=== PATIENT | female | born 1970 | race Caucasian/White ===

== ENCOUNTER → 2016-08-18 | Outpatient (CLI) | payer BC ==
--- NOTE | 2016-08-23 11:09 | MM ---
Reason for exam: screening (asymptomatic). Last mammogram was performed 1 year and 8 months ago. History: Patient has history of other cancer at age 44. Family history of breast cancer in aunt at age 54. Took hormonal contraceptives for 3 years beginning at age 35. Physical Findings: A clinical breast exam by your physician is recommended on an annual basis and results should be correlated with mammographic findings. MG Screening Mammo w CAD Bilateral CC and MLO view(s) were taken. Prior study comparison: December 12, 2014, bilateral MG screening mammo w CAD. June 28, 2013, bilateral digital screening mammo w/CAD. The breast tissue is heterogeneously dense. This may lower the sensitivity of mammography. There is chronic nodularity bilaterally. There is no discrete abnormality. No significant changes when compared with prior studies. ASSESSMENT: Benign, BI-RAD 2 RECOMMENDATION: Routine screening mammogram of both breasts in 1 year.
== END | disposition home or self-care (01) ==
LOC: RADMAMWWP 07:14
PROVIDERS: ATTEND Family Medicine
DX: Z12.31 Encounter for screening mammogram for malignant neoplasm of breast (principal)

== ENCOUNTER → 2016-11-12 | Outpatient (CLI) | payer BC ==
--- NOTE | 2016-11-12 16:11 | US ---
EXAMINATION TYPE: US pelvic complete DATE OF EXAM: 11/12/2016 COMPARISON: NONE CLINICAL HISTORY: Pelvic Pain R10.2. Severe pelvic pain x 7-8 months worse during menses. Ablation 20 TECHNIQUE: Transabdominal (TA) Date of LMP: 10/27/16 EXAM MEASUREMENTS: Uterus: 10.9 x 4.8 x 6.6 cm Endometrial Stripe: 1.0 cm Right Ovary: 3.3 x 1.9 x 1.9 cm Left Ovary: 3.2 x 1.7 x 2.2 cm 1. Uterus: Anteverted Heterogeneous in appearance. Nabothian cysts noted. Cystic area body subendo thelial level = 0.9 x 0.7 x 0.9cm. Complex area anterior body within the myometrium = 1.2 x 1.2 x 1.4 cm probable fibroid 2. Endometrium: appears wnl 3. Right Ovary: wnl 4. Left Ovary: cystic area = 2.1 x 1.5 x 1.3cm 5. Bilateral Adnexa: wnl 6. Posterior cul-de-sac: small amount of free fluid anterior cul-de-sac Grayscale, color Doppler imaging performed. IMPRESSION: Fibroid uterus. Small left ovarian cyst. Free fluid within the pelvis.
== END | disposition home or self-care (01) ==
LOC: RADUSWWP 13:55
PROVIDERS: ATTEND Family Medicine
DX: D25.9 Leiomyoma of uterus, unspecified (principal); N83.202 Unspecified ovarian cyst, left side
CPT/HCPCS: 76856

== ENCOUNTER → 2018-05-18 | Outpatient (CLI) | payer BC ==
--- NOTE | 2018-05-18 12:53 | CONS ---
CONSULTATION A 47-year-old lady has been evaluated in the [facility] for possible obstructive sleep apnea-hypopnea syndrome and significant excessive daytime sleepiness. HISTORY OF PRESENT ILLNESS/SLEEP-WAKE EVALUATION: Patient's usual sleep schedule on working days from 10:30 p.m. until 5:45 - 6:00 am and on weekends from 10:30 - 11 p.m. until 8 a.m. No problems with falling asleep, although she has TV set in bedroom. She usually sleeps on the side position. She snores, has witnessed episodes of stopped breathing during the sleep by her . She has episodes of awakenings from sleep with gasping for air and dry mouth. In the morning, patient wakes up tired, falling asleep during the day, has problems with concentration. [place] Sleepiness Scale significantly increased to 18. Patient feels significantly sleepy during the day including time while driving the car. No history of hypnagogic hallucinations, sleep paralysis or cataplexy. PAST MEDICAL HISTORY: Positive for nasal septum deviation, melanoma, left knee problems. PAST SURGICAL HISTORY: Nasal surgery for nasal septum deviation, tonsillectomy, adenoidectomy, partial hysterectomy, cholecystectomy, left knee surgery for ACL problems. Two surgeries for melanomas of left hip in two different areas. MEDICATIONS: Loestrin. SOCIAL HISTORY: Negative for smoking. Alcohol consumption occasional. FAMILY HISTORY: Hypertension, heart problems, hyperlipidemia, arthritis, sleep apnea, snoring, cancer, diabetes. REVIEW OF SYSTEMS: Significant excessive daytime sleepiness. No vivid dreams during naps. PHYSICAL EXAM: lady without distress. BP 134/89, HR 92, RR 16, height 5, 3, weight 159.8, body mass index 28.1, oxygen saturation at room air 99%, temperature 98.4. OROPHARYNX: Moderately low position of soft palate. Slight restriction of nasal breathing. Neck Supple, no JVD. Thyroid is not palpable. LUNGS Clear to percussion and to auscultation. Good air exchange. No wheezing or rhonchi. HEART S1, S2 regular. No murmurs, gallops, or rubs. ABDOMEN Soft and nontender. Bowel sounds are present. No organomegaly appreciated. EXTREMITIES No clubbing or cyanosis. 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 Cranial nerves 2 to 7 intact. There is no fasciculation or atrophy. noted. No focal deficits observed. IMPRESSION: 1. Snoring, witnessed episodes of stopped breathing during the sleep, moderately low position of soft palate. Slight restriction of nasal breathing. Possible obstructive sleep apnea-hypopnea syndrome. 2. Significant excessive daytime sleepiness. [place] Sleepiness Scale increased to 18. Patient feels sleepy in different situations including while driving the car. Differential diagnosis should include narcolepsy. 3. Status post nasal surgery for nasal septum deviation x2. 4. Status post tonsillectomy and adenoidectomy. 5. Status post partial hysterectomy. 6. Status post cholecystectomy. 7. Status post left knee surgery for ACL problems. 8. Status post surgical treatment of melanoma of left hip in 2 different locations about 2 years ago. PLAN: 1. Polysomnography for evaluation of patient's breathing during sleep. 2. CPAP/BiPAP titration if sleep study confirms obstructive sleep apnea-hypopnea syndrome. 3. Preferable position during sleep on the side. 4. No driving if patient feels any sleepiness. 5. Multiple sleep latency test for objective evaluation of patient's symptoms of excessive daytime sleepiness, if sleep study will be negative for obstructive sleep apnea-hypopnea syndrome. 6. I will see patient for follow up visit to explain results of testing and following plan. Thank you very much for this allowing us to participate in this consultation. Sincerely, Gigi Aldridge MD, PhD, FAASM Diplomat of [employer] [place] [employer] [facility] [place] MMODL / ELPIDIO: [id number] /
== END | disposition home or self-care (01) ==
LOC: SLEEP 11:48
PROVIDERS: ATTEND Internal Medicine
DX: R06.83 Snoring (principal); G47.10 Hypersomnia, unspecified; Z90.711 Acquired absence of uterus with remaining cervical stump; Z90.49 Acquired absence of other specified parts of digestive tract; Z98.890 Other specified postprocedural states
CPT/HCPCS: 99211

== ENCOUNTER → 2019-04-11 | Outpatient (CLI) | payer BC ==
--- NOTE | 2019-04-11 12:06 | MM ---
Reason for exam: screening (asymptomatic). Last mammogram was performed 2 years and 8 months ago. History: Patient has history of other cancer at age 44. Family history of breast cancer in aunt at age 54. Took hormonal contraceptives for 3 years beginning at age 35. Physical Findings: A clinical breast exam by your physician is recommended on an annual basis and results should be correlated with mammographic findings. MG 3D Screening Mammo W/Cad Bilateral CC and MLO view(s) were taken. Prior study comparison: August 18, 2016, bilateral MG screening mammo w CAD. December 12, 2014, bilateral MG screening mammo w CAD. The breast tissue is heterogeneously dense. This may lower the sensitivity of mammography. There is no discrete abnormality. ASSESSMENT: Negative, BI-RAD 1 RECOMMENDATION: Routine screening mammogram of both breasts in 1 year.
== END | disposition home or self-care (01) ==
LOC: RADMAMWWP 07:01
PROVIDERS: ATTEND Obstetrics & Gynecology
DX: Z12.31 Encounter for screening mammogram for malignant neoplasm of breast (principal)
CPT/HCPCS: 77063; 77067

== ENCOUNTER → 2021-10-07 | Outpatient (CLI) | payer BC ==
[2021-10-07 08:55] VITALS: BP 147/93; PULSE 84; RESP 17; TEMP 98.2
--- NOTE | 2021-10-07 13:33 | P.HPOB ---
History of Present Illness H&P Date: 10/07/21 Chief Complaint: The patient is here for her routine gynecologic exam. This is a 50-year-old with an LMP of 2019. The patient is here to establish with this office. She is status post vaginal hysterectomy with sling procedure in 2019(benign). She is status post laparoscopic BSO in June 2021 for benign reasons. She is on ERT in the form of an estradiol patch. She has been on this since her BSO, but has recently noticed some nausea during the past 1-2 months. She denies hot flashes. She is otherwise without complaints. Review of Systems The patient has gained 20 pounds over the last year. She denies respiratory or cardiac problems GI: Recent nausea during the past 1-2 months. She has not had vomiting. Past Medical History Past Medical History: Cancer, Hypertension Additional Past Medical History / Comment(s): MELINOMA STAGE 1 x2 ON LEFT THIGH. 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 History of Any Multi-Drug Resistant Organisms: None Reported Past Surgical History: Ablation, Cholecystectomy, Hysterectomy, Tonsillectomy, Uterine Ablation Additional Past Surgical History / Comment(s): NOSE SURGERY, ACL REPLACEMENT, vaginal hysterectomy with urinary sling procedure in 2019. Laparoscopic BSO 2021. Past Anesthesia/Blood Transfusion Reactions: No Reported Reaction Past Psychological History: Anxiety, Depression (She denies any current depression symptoms.) Smoking Status: Never smoker Past Alcohol Use History: Occasional (10 per month) Past Drug Use History: None Reported Additional History: She has been since 2016 and this is her second marriage. 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 - Past Family History Mother Family Medical History: Diabetes Mellitus, Hypertension Father Family Medical History: Cancer, Hypertension Additional Family Medical History / Comment(s): Prostate cancer. Paternal aunt had breast cancer. Paternal uncle had lung cancer and another paternal uncle had prostate cancer. Medications and Allergies Home Medications Medication Instructions Recorded Confirmed Type Labetalol [Trandate] 100 mg PO DAILY 10/07/21 10/07/21 History estradioL [estradioL (Once Weekly) 1 patch TOPICAL WEEKLY 10/07/21 10/07/21 History 0.0375 mg Patch] Allergies Allergy/AdvReac Type Severity Reaction Status Date / Time adhesive tape Allergy Rash/Hives Unverified 10/07/21 08:46 iodamide Allergy Rash/Hives Unverified 10/07/21 08:45 Sulfa (Sulfonamide Allergy Rash/Hives Verified 10/07/21 08:45 Antibiotics) Exam Vital Signs Temp Pulse Resp BP Pulse Ox 10/07/21 08:48 98.2 F 84 17 147/93 98 Intake and Output 10/06/21 10/07/21 10/07/21 22:59 06:59 14:59 Other: Weight 78.471 kg Height 5 feet 3 inches, weight 173 pounds, BMI 30.6. This is a well-developed well-nourished white female who is alert and oriented times 3 in no acute distress. HEENT: Within normal limits. NECK: Supple without mass or thyromegaly. CHEST AND LUNGS: Clear to auscultation. HEART: Regular rate and rhythm. BREASTS: Are without mass or discharge. AXILLARY EXAM: Negative for adenopathy. BACK: Negative for CVA tenderness. ABDOMEN: Soft, nontender, without palpable masses. PELVIC EXAM: External genitalia appears normal. Vagina appears normal. There is no evidence of prolapse. Bimanual examination is negative for mass or tenderness. RECTAL EXAM: Rectovaginal exam is negative for mass or tenderness and is negative for occult blood. EXTREMITIES: Nontender. IMPRESSION: 1. 50 year old menopausal female who is status post vaginal hysterectomy and BSO for benign reasons, with normal gynecologic exam. 2. On transdermal ERT. Mild recent nausea may or may not be related to ERT. PLAN: 1. Pap smears have been discontinued. 2. Self breast awareness was discussed with the patient. We have also discussed symptoms associated with inflammatory breast cancer. 3. Screening mammogram was recently done on 07/07/2021 and was benign. She will repeat this after 1 year. 4. Osteoporosis prevention was discussed. I have stressed the importance of adequate calcium, vitamin D and regular exercise. Recommended amounts of calcium and vitamin D were also discussed. 5. I have recommended that she have a trial off of ERT to see if this helps with the nausea she has been experiencing recently. If it does help with the nausea and she is having menopausal symptoms, we can consider a lower ERT dose. If there is no change in her nausea, she will continue on estradiol patches 0.0375 changed twice weekly. The electronic prescription will be sent to [facility] pharmacy in [facility]. 6. Because of her age, I have recommended screening colonoscopy. She states she will look into this with her PCP. 7. She has completed her Covid vaccination series and did receive a booster. 8. She was advised to return in one year for her annual well woman exam.
== END ==
LOC: WWCWWP 08:35
PROVIDERS: ATTEND Obstetrics & Gynecology
DX: Z01.419 Encounter for gynecological examination (general) (routine) without abnormal findings (principal); R11.0 Nausea; I10 Essential (primary) hypertension; F41.9 Anxiety disorder, unspecified; F32.A Depression, unspecified; Z78.0 Asymptomatic menopausal state; Z90.710 Acquired absence of both cervix and uterus; Z79.890 Hormone replacement therapy; Z91.048 Other nonmedicinal substance allergy status; Z88.2 Allergy status to sulfonamides

== ENCOUNTER 2021-10-29 07:18 | Emergency (ER) | payer BC ==
[2021-10-29 07:24] VITALS: RESP 18
[2021-10-29] MEDS ORDERED: MAG HYDROX/AL HYDROX/SIMETH 30 ML, HYOSCYAMINE ELIXIR 10 ML, LIDOCAINE VISCOUS 2% 10 ML PO STA ×3 (07:44)
--- NOTE | 2021-10-29 07:55 | ED ---
General Adult HPI - General Chief complaint: ENT Stated complaint: abd pain Time Seen by Provider: 10/29/21 07:22 Source: patient, RN notes reviewed, old records reviewed Mode of arrival: ambulatory Limitations: no limitations - History of Present Illness Initial comments: 50-year-old female presenting with painful and difficulty swallowing. Symptoms have been going on for at least several weeks. She was seen by her primary care office and prescribed 40 mg of omeprazole. She has an appointment with gastroenterology scheduled. She has persistent pain which is worse with eating or drinking. She is able to swallow with some reflux symptoms as well. She reports a substernal pain. No recent weight loss. - Related Data Home Medications Medication Instructions Recorded Confirmed Labetalol [Trandate] 100 mg PO BID 10/07/21 10/29/21 Omeprazole [PriLOSEC] 40 mg PO DAILY 10/29/21 10/29/21 Ondansetron Odt [Zofran Odt] 8 mg PO Q8HR PRN 10/29/21 10/29/21 estradioL [estradioL (Twice 1 patch TRANSDERM SUWE 10/29/21 10/29/21 Weekly) 0.0375 mg Patch] Allergies Allergy/AdvReac Type Severity Reaction Status Date / Time adhesive tape Allergy Rash/Hives Unverified 10/07/21 08:46 iodamide Allergy Rash/Hives Unverified 10/07/21 08:45 Sulfa (Sulfonamide Allergy Rash/Hives Verified 10/07/21 08:45 Antibiotics) Review of Systems ROS Statement: Those systems with pertinent positive or pertinent negative responses have been documented in the HPI. ROS Other: All systems not noted in ROS Statement are negative. Past Medical History Past Medical History: Cancer, Hypertension Additional Past Medical History / Comment(s): MELINOMA STAGE 1 x2 ON LEFT THIGH. 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 History of Any Multi-Drug Resistant Organisms: None Reported Past Surgical History: Ablation, Cholecystectomy, Hysterectomy, Tonsillectomy, Uterine Ablation Additional Past Surgical History / Comment(s): NOSE SURGERY, ACL REPLACEMENT, vaginal hysterectomy with urinary sling procedure in 2019. Laparoscopic BSO 2021. ovary's removed. Past Anesthesia/Blood Transfusion Reactions: No Reported Reaction Past Psychological History: Anxiety, Depression Smoking Status: Never smoker Past Alcohol Use History: Occasional Past Drug Use History: None Reported - Past Family History Mother Family Medical History: Diabetes Mellitus, Hypertension Father Family Medical History: Cancer, Hypertension Additional Family Medical History / Comment(s): Prostate cancer. Paternal aunt had breast cancer. Paternal uncle had lung cancer and another paternal uncle had prostate cancer. General Exam Limitations: no limitations General appearance: alert, in no apparent distress Head exam: Present: atraumatic, normocephalic Eye exam: Present: normal appearance, PERRL ENT exam: Present: normal exam, normal oropharynx Neck exam: Present: normal inspection. Absent: tenderness, meningismus, lymphadenopathy, thyromegaly Respiratory exam: Present: normal lung sounds bilaterally, respiratory distress. Absent: wheezes, rales Cardiovascular Exam: Present: regular rate, normal rhythm GI/Abdominal exam: Present: soft. Absent: distended, tenderness, guarding, rebound Extremities exam: Present: normal inspection, normal capillary refill Neurological exam: Present: alert, oriented X3, CN II-XII intact. Absent: motor sensory deficit Psychiatric exam: Present: normal affect, normal mood Skin exam: Present: warm, dry, intact. Absent: cyanosis, diaphoretic Course Vital Signs 10/29/21 07:19 Temperature 98.1 F Pulse Rate 92 Respiratory 18 Rate Blood Pressure 165/98 O2 Sat by Pulse 96 Oximetry EKG Findings - EKG Comments: EKG Findings:: EKG: Sinus rhythm rate of 68 NV interval 155, QRS duration 86, QTC [address] segment elevation. Medical Decision Making - Medical Decision Making 50-year-old female with painful swallowing for several weeks. Patient is able to swallow. No signs of obstruction, no vomiting, no dyspnea. She is been on omeprazole for one week. She has an appointment with GI. I did obtain some laboratory testing including a cardiac workup as this patient did have some substernal discomfort associated with her symptoms. I do not see any acute abnormalities on EKG, chest x-ray, laboratory testing. Negative troponin. Her symptoms are suggestive of gastric reflux or esophagitis. She will require GI evaluation and currently has an appointment. In the meantime she will continue proton pump inhibitor, she'll avoid alcohol and NSAIDs. Return parameters discussed. - Lab Data Result diagrams: 10/29/21 08:06 10/29/21 08:06 Lab Results 06/09/22 06/09/22 06/09/22 Range/Units 08:06 08:06 08:06 WBC 5.5 (3.8-10.6) k/uL RBC 4.39 (3.80-5.40) m/uL Hgb 13.0 (11.4-16.0) gm/dL Hct 39.3 (34.0-46.0) % MCV 89.4 (80.0-100.0) fL MCH 29.5 (25.0-35.0) pg MCHC 33.0 (31.0-37.0) g/dL RDW 12.0 (11.5-15.5) % Plt Count 274 (150-450) k/uL MPV 8.0 Neutrophils % 62 % Lymphocytes % 28 % Monocytes % 6 % Eosinophils % 1 % Basophils % 1 % Neutrophils # 3.4 (1.3-7.7) k/uL Lymphocytes # 1.6 (1.0-4.8) k/uL Monocytes # 0.3 (0-1.0) k/uL Eosinophils # 0.1 (0-0.7) k/uL Basophils # 0.1 (0-0.2) k/uL PT 10.1 (9.0-12.0) sec INR 0.9 (<1.2) APTT 23.1 (22.0-30.0) sec Sodium 139 (137-145) mmol/L Potassium 4.2 (3.5-5.1) mmol/L Chloride 107 (98-107) mmol/L Carbon Dioxide 24 (22-30) mmol/L Anion Gap 8 mmol/L BUN 17 (7-17) mg/dL Creatinine 0.70 (0.52-1.04) mg/dL Est GFR (CKD-EPI)AfAm >90 (>60 ml/min/1.73 sqM) Est GFR (CKD-EPI)NonAf >90 (>60 ml/min/1.73 sqM) Glucose 110 H (74-99) mg/dL Calcium 9.6 (8.4-10.2) mg/dL Magnesium 2.0 (1.6-2.3) mg/dL Total Bilirubin 0.7 (0.2-1.3) mg/dL AST 44 H (14-36) U/L ALT 56 H (4-34) U/L Alkaline Phosphatase 60 (38-126) U/L Troponin I (0.000-0.034) ng/mL Total Protein 7.4 (6.3-8.2) g/dL Albumin 4.6 (3.5-5.0) g/dL Lipase 69 (23-300) U/L 10/29/21 Range/Units 08:06 WBC (3.8-10.6) k/uL RBC (3.80-5.40) m/uL Hgb (11.4-16.0) gm/dL Hct (34.0-46.0) % MCV (80.0-100.0) fL MCH (25.0-35.0) pg MCHC (31.0-37.0) g/dL RDW (11.5-15.5) % Plt Count (150-450) k/uL MPV Neutrophils % % Lymphocytes % % Monocytes % % Eosinophils % % Basophils % % Neutrophils # (1.3-7.7) k/uL Lymphocytes # (1.0-4.8) k/uL Monocytes # (0-1.0) k/uL Eosinophils # (0-0.7) k/uL Basophils # (0-0.2) k/uL PT (9.0-12.0) sec INR (<1.2) APTT (22.0-30.0) sec Sodium (137-145) mmol/L Potassium (3.5-5.1) mmol/L Chloride (98-107) mmol/L Carbon Dioxide (22-30) mmol/L Anion Gap mmol/L BUN (7-17) mg/dL Creatinine (0.52-1.04) mg/dL Est GFR (CKD-EPI)AfAm (>60 ml/min/1.73 sqM) Est GFR (CKD-EPI)NonAf (>60 ml/min/1.73 sqM) Glucose (74-99) mg/dL Calcium (8.4-10.2) mg/dL Magnesium (1.6-2.3) mg/dL Total Bilirubin (0.2-1.3) mg/dL AST (14-36) U/L ALT (4-34) U/L Alkaline Phosphatase (38-126) U/L Troponin I <0.012 (0.000-0.034) ng/mL Total Protein (6.3-8.2) g/dL Albumin (3.5-5.0) g/dL Lipase (23-300) U/L Disposition Clinical Impression: GERD (gastroesophageal reflux disease) Disposition: HOME SELF-CARE Condition: Good Instructions (If sedation given, give patient instructions): GERD (Gastroesopha geal Reflux Disease) (ED) Is patient prescribed a controlled substance at d/c from ED?: No Referrals: Graham Hopper DO [Primary Care Provider] - 1-2 days Time of Disposition: 09:30
[2021-10-29 08:24] LABS: INR 0.9 (<1.2); Partial Thromboplastin Time 23.1 sec (22.0-30.0); Prothrombin Time 10.1 sec (9.0-12.0)
[2021-10-29 08:35] LABS: ALT 56 U/L (4-34); AST 44 U/L (14-36); African American GFR (CKD) >90 (>60 ml/min/1.73 sqM); Albumin 4.6 g/dL (3.5-5.0); Alkaline Phosphatase 60 U/L (38-126); Anion Gap 8 mmol/L; Basophils # (A) 0.1 k/uL (0-0.2); Basophils % (A) 1 %; Blood Urea Nitrogen 17 mg/dL (7-17); Calcium 9.6 mg/dL (8.4-10.2); Carbon Dioxide 24 mmol/L (22-30); Chloride 107 mmol/L (98-107); Eosinophils # (A) 0.1 k/uL (0-0.7); Eosinophils % (A) 1 %; Glucose 110 mg/dL (74-99); HCT 39.3 % (34.0-46.0); Lipase 69 U/L (23-300); Lymphocytes # (A) 1.6 k/uL (1.0-4.8); Lymphocytes % (A) 28 %; MCH 29.5 pg (25.0-35.0); MCV 89.4 fL (80.0-100.0); Monocytes # (A) 0.3 k/uL (0-1.0); Monocytes % (A) 6 %; Neutrophils # (A) 3.4 k/uL (1.3-7.7); Neutrophils % (A) 62 %; Non-African American GFR(CKD) >90 (>60 ml/min/1.73 sqM); Platelet Count 274 k/uL (150-450); Potassium 4.2 mmol/L (3.5-5.1); RBC 4.39 m/uL (3.80-5.40); Sodium 139 mmol/L (137-145); Total Bilirubin 0.7 mg/dL (0.2-1.3); Total Protein 7.4 g/dL (6.3-8.2); WBC 5.5 k/uL (3.8-10.6)
--- NOTE | 2021-10-29 08:45 | XR ---
EXAMINATION TYPE: XR chest 2V DATE OF EXAM: 10/29/2021 COMPARISON: NONE TECHNIQUE: PA and lateral views submitted. HISTORY: Chest pain FINDINGS: The lungs are clear and there is no pneumothorax, pleural effusion, or focal pneumonia. Heart size normal. No failure. Hypertrophic and degenerative changes spine. IMPRESSION: 1. No acute process.
[2021-10-29 09:58] VITALS: BP 142/87; PULSE 87; TEMP 97.8
== END 2021-10-29 09:58 | disposition home or self-care (01) ==
LOC: EC 07:18
DX: K21.9 Gastro-esophageal reflux disease without esophagitis (principal); I10 Essential (primary) hypertension; Z79.899 Other long term (current) drug therapy; Z91.09 Other allergy status, other than to drugs and biological substances; Z88.8 Allergy status to other drugs, medicaments and biological substances; Z88.2 Allergy status to sulfonamides
CPT/HCPCS: 36415; 71046; 80053; 83690; 83735; 84484; 85025; 85610; 85730; 93005; 99284

== ENCOUNTER → 2021-12-16 | Outpatient (CLI) | payer BC ==
--- NOTE | 2021-12-16 09:19 | CT ---
EXAMINATION TYPE: CT soft tissue neck w con CT DLP: 638 mGycm, Automated exposure control for dose reduction was used. DATE OF EXAM: 12/16/2021 8:24 AM COMPARISON: None. CLINICAL INDICATION:Female, 51 years old with history of M54.2 Neck pain; PHH, swelling, melanoma. TECHNIQUE: Standard enhanced CT of the neck following intravenous administration of 70 cc of Isovue 3 00. Axial sections with coronal and sagittal reformats were obtained. FINDINGS: Brain: Visualized portions are grossly unremarkable. Orbits: Unremarkable Sinuses: Grossly unremarkable. Spaces of the neck: Clear and symmetric. Musculoskeletal: No acute osseous pathology. Lymph nodes: Multiple nonenlarged lymph nodes are seen along both anterior chains of the neck. Vascular structures: Minimal atherosclerotic calcifications of the internal carotid arteries. Thoracic Inlet/airway: Airway is patent. 5 mm pulmonary nodule within the superior segment of the rig ht lower lobe (series 3, image 90). Soft tissues/Thyroid: Thyroid and remainder of the soft tissues are unremarkable. Other: none. IMPRESSION * No definite evidence for neck mass or corresponding abdomen around the patient's reported. * 5 mm right upper lobe pulmonary nodule. Correlation with prior imaging is recommended to assess fo r stability otherwise consider CT chest for further evaluation.
== END | disposition home or self-care (01) ==
LOC: RADCTMAIN 07:34
PROVIDERS: ATTEND Otolaryngology
DX: R91.1 Solitary pulmonary nodule (principal)
CPT/HCPCS: 70491; Q9967

== ENCOUNTER → 2022-01-28 | Day surgery (SDC) | payer BC ==
[2022-01-28 12:36] VITALS: BP 168/89; PULSE 87; RESP 16; TEMP 97.6
== END ==
LOC: ORWHC2ENDO 12:12
PROVIDERS: ATTEND Internal Medicine Gastroenterology
DX: R13.10 Dysphagia, unspecified (principal); Z53.8 Procedure and treatment not carried out for other reasons
CPT/HCPCS: 91010

== ENCOUNTER → 2022-09-02 | Outpatient (CLI) | payer BC ==
--- NOTE | 2022-09-03 08:22 | MM ---
Reason for Exam: Screening (asymptomatic). Last mammogram was performed 1 year(s) and 2 month(s) ago. Patient History: Menarche at age 12. First Full-Term at age 22. Left ovary removed at age 50. Right ovary removed at age 50. Hysterectomy at age 45. Postmenopausal. Patient has history of breast feeding. Other cancer, age 44. Hormonal Contraceptives for 3 years from age 35 until age 38. Paternal aunt had breast cancer, age 54. Risk Values: Dianna 5 year model risk: 0.9%. NCI Lifetime model risk: 7.9%. Prior Study Comparison: 08/18/2016 Bilateral Screening Mammogram, [facility]. 04/11/2019 Bilateral Screening Mammogram, [facility]. 07/07/2021 Bilateral Screening Mammogram, [facility]. Tissue Density: The breast tissue is heterogeneously dense. This may lower the sensitivity of mammography. Findings: Analyzed By CAD. There is no suspicious group of microcalcifications or new suspicious mass in either breast. Overall Assessment: Negative, BI-RAD 1 Management: Screening Mammogram of both breasts in 1 year. A clinical breast exam by your physician is recommended on an annual basis and results should be correlated with mammographic findings. [facility] will attempt to contact patient to return for supplemental views and ultrasound if indicated. Electronically signed and approved by: Tevin Nunez DO
== END | disposition home or self-care (01) ==
LOC: RADMAMWWP 16:44
PROVIDERS: ATTEND Surgery
DX: Z12.31 Encounter for screening mammogram for malignant neoplasm of breast (principal); Z78.0 Asymptomatic menopausal state; Z80.3 Family history of malignant neoplasm of breast
CPT/HCPCS: 77063; 77067

== ENCOUNTER → 2022-11-29 | Outpatient (CLI) | payer BC ==
--- NOTE | 2022-11-29 09:34 | US ---
EXAMINATION TYPE: US liver DATE OF EXAM: 11/29/2022 COMPARISON: CT 2010, US 2009 CLINICAL INDICATION: Female, 51 years old with history of R74.01 ELEVATION OF LIVER LEVELS; TECHNIQUE: Multiple sonographic images of the right upper quadrant are obtained. FINDINGS: EXAM MEASUREMENTS: Liver Length: 18.4 cm CBD: 0.6 cm Right Kidney: 11.1 x 4.3 x 6.0 cm Pancreas: visualized portions wnl, limited by overlying midline bowel gas Liver: enlarged, attenuating, heterogeneous, decreased visualization of vessels suggestive of fatty infiltrate Gallbladder: surgically absent Evidence for sonographic Moeller's sign: no CBD: wnl Right Kidney: wnl IMPRESSION: There is hepatomegaly with underlying hepatic steatosis.
== END | disposition home or self-care (01) ==
LOC: RADUSWWP 09:01
PROVIDERS: ATTEND Internal Medicine Gastroenterology
DX: K76.0 Fatty (change of) liver, not elsewhere classified (principal); R16.0 Hepatomegaly, not elsewhere classified; R74.01 Elevation of levels of liver transaminase levels
CPT/HCPCS: 76705

== ENCOUNTER → 2023-09-20 | Outpatient (CLI) | payer BC ==
[2023-09-20 11:07] VITALS: BP 134/89; PULSE 90; RESP 16; TEMP 97.8
--- NOTE | 2023-09-20 11:21 | P.HPOB ---
History of Present Illness H&P Date: 09/20/23 Chief Complaint: The patient is here for her routine gynecologic exam and ma mmogram. This is a 52-year-old G3, P3 with an LMP of 2019. She is status post vaginal hysterectomy and later BSO for benign reasons. She has been on ERT since her BSO. She is without gynecologic complaint and denies any significant hot flashes at this time. Review of Systems The patient's weight has been stable over the last year. She denies respiratory, cardiac, or G.I. problems. Past Medical History Past Medical History: Cancer, Hypertension Additional Past Medical History / Comment(s): MELANOMA STAGE 1 x2 ON LEFT THIGH. 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 History of Any Multi-Drug Resistant Organisms: None Reported Past Surgical History: Ablation, Cholecystectomy, Hysterectomy, Tonsillectomy, Uterine Ablation Additional Past Surgical History / Comment(s): NOSE SURGERY, ACL REPLACEMENT, vaginal hysterectomy with urinary sling procedure in 2019. Laparoscopic BSO 2021. Cervical spine disc replacement surgery 2023. Breast reduction surgery in 2021. Past Anesthesia/Blood Transfusion Reactions: No Reported Reaction Past Psychological History: Anxiety, Depression Smoking Status: Never smoker Past Alcohol Use History: Occasional Past Drug Use History: None Reported - Past Family History Mother Family Medical History: Diabetes Mellitus, Hypertension Father Family Medical History: Cancer, Hypertension Additional Family Medical History / Comment(s): Prostate cancer. Paternal aunt had breast cancer. Paternal uncle had lung cancer and another paternal uncle had prostate cancer. Medications and Allergies Home Medications Medication Instructions Recorded Confirmed Type Labetalol [Trandate] 100 mg PO BID 10/07/21 01/28/22 History Omeprazole [PriLOSEC] 40 mg PO DAILY 10/29/21 01/27/22 History estradioL [estradioL (Twice 1 patch TRANSDERM SUWE 10/29/21 01/27/22 History Weekly) 0.0375 mg Patch] Atorvastatin [Lipitor] 10 mg PO DAILY 09/20/23 09/20/23 History Losartan [Cozaar] 50 mg PO DAILY 09/20/23 09/20/23 History Allergies Allergy/AdvReac Type Severity Reaction Status Date / Time adhesive tape Allergy Severe Rash/Hives Verified 09/20/23 10:42 iodamide Allergy Severe Rash/Hives Verified 09/20/23 10:42 Sulfa (Sulfonamide Allergy Severe Rash/Hives Verified 09/20/23 10:42 Antibiotics) chloraprep Allergy Severe Rash/Hives Uncoded 09/20/23 10:42 Exam Vital Signs Temp Pulse Resp BP Pulse Ox 09/20/23 10:43 97.8 F 90 16 134/89 98 Intake and Output 09/19/23 09/20/23 09/20/23 22:59 06:59 14:59 Other: Weight 78.471 kg Height 5 feet 3 inches, weight 173 pounds, BMI 30.6 This is a well-developed well-nourished white female who is alert and oriented times 3 in no acute distress. HEENT: Within normal limits. NECK: Supple without mass or thyromegaly. CHEST AND LUNGS: Clear to auscultation. HEART: Regular rate and rhythm. BREASTS: Are without mass or discharge. AXILLARY EXAM: Negative for adenopathy. BACK: Negative for CVA tenderness. ABDOMEN: Soft, nontender, without palpable masses. PELVIC EXAM: External genitalia appears normal with minimal atrophy. Vagina appears normal with minimal atrophy. There is no evidence of prolapse. Bimanual examination is negative for mass or tenderness. RECTAL EXAM: Rectovaginal exam is negative for mass or tenderness and is negative for occult blood. EXTREMITIES: Nontender. IMPRESSION: 1. 52-year-old menopausal female status post vaginal hysterectomy with later BSO for benign reasons, with normal gynecologic exam. 2. Doing well on ERT form of estradiol 0.0375 mg/d patches changed twice weekly. PLAN: 1. Pap smears have been discontinued 2. Self breast awareness was discussed with the patient. We have also discussed symptoms associated with inflammatory breast cancer. 3. Screening mammogram will be done today. 4. We have discussed possible risks of ERT including increased risk for blood clots and stroke. We will try to find the lowest effective dose of ERT. We will have a trial of estradiol 0.025 mg/day patches changed twice weekly. She was instructed to call if she is having significant problems with this change. Electronic prescription will be sent to [facility] pharmacy in [facility]. 5. Osteoporosis prevention was discussed. I have stressed the importance of adequate calcium, vitamin D and regular exercise. Recommended amounts of calcium and vitamin D were also discussed. 6. She was advised to return in one year for her annual well woman exam.
--- NOTE | 2023-09-20 15:27 | MM ---
Reason for Exam: Screening (asymptomatic). Last screening mammogram was performed 12 month(s) ago. Patient History: Menarche at age 12. First Full-Term at age 22. Left ovary removed at age 50. Right ovary removed at age 50. Hysterectomy at age 45. Postmenopausal. Patient has history of breast feeding. Other cancer, age 44. Hormonal Contraceptives for 3 years from age 35 until age 38. Paternal aunt had breast cancer, age 54. Risk Values: Dianna 5 year model risk: 0.9%. NCI Lifetime model risk: 7.8%. Prior Study Comparison: 04/11/2019 Bilateral Screening Mammogram, [facility]. 07/07/2021 Bilateral Screening Mammogram, [facility]. 09/02/2022 Bilateral MG 3D screening mammo w/cad, [facility]. Tissue Density: The breasts are heterogeneously dense, which may obscure small masses. Findings: Analyzed By CAD. The pattern is symmetrical. No significant interval change is evident. No suspicious groups of microcalcifications, spiculated or lobular masses, architectural distortion or other secondary signs of malignancy are mammographically apparent. Overall Assessment: Benign, BI-RAD 2 Management: Screening Mammogram of both breasts in 1 year. A negative mammogram report should not preclude additional follow up of suspicious palpable abnormalities. Patient should continue monthly self breast exam. A clinical breast exam by your physician is recommended on an annual basis and results should be correlated with mammographic findings. Note on Dianna scores and lifetime risk: 1. A Dianna score greater than 3% is considered moderate risk. If this is the case, consider specialist referral to assess eligibility for a risk reducing agent. 2. If overall lifetime risk for the development of breast cancer is 20% or higher, the patient may qualify for future screening with alternating mammogram and breast MRI. Electronically signed and approved by: Graham Flores D.O. Radiologis
== END | disposition home or self-care (01) ==
LOC: WWCWWP 10:29
PROVIDERS: ATTEND Obstetrics & Gynecology
DX: Z12.31 Encounter for screening mammogram for malignant neoplasm of breast (principal); F12.90 Cannabis use, unspecified, uncomplicated; Z78.0 Asymptomatic menopausal state; Z90.710 Acquired absence of both cervix and uterus; Z91.048 Other nonmedicinal substance allergy status; Z88.0 Allergy status to penicillin; Z88.1 Allergy status to other antibiotic agents
CPT/HCPCS: 77063; 77067

== ENCOUNTER → 2024-02-22 | Outpatient (CLI) | payer BC ==
[2024-02-22 11:29] VITALS: BP 128/78; PULSE 73; RESP 17; TEMP 98.2
--- NOTE | 2024-02-22 12:07 | P.PN ---
Progress Note - Text Progress Note Date: 02/22/24 Chief Complaint: Right breast pain and soreness for a few months. HPI: This is a 53-year-old G3, P3 with an LMP of 2020. She is status post vaginal hysterectomy and later BSO for benign reasons. She is on low-dose ERT in the form of estrogen patches 0.025 mg changed two times weekly. She is status post breast reduction surgery done 1 to 2 years ago. She has been having some right breast pain for a few months. At times she thinks she can feel some lumpy areas where the she is having to breast pain. The breast pain seems to be greatest around the 8:00 to 9 o'clock position. She states that can feel sore to the touch. She is wondering if it is related to some chronic pain she has b een experiencing with her neck and right jaw. She had surgery for disc replacement about 1 year ago. She has also been seeing doctors regarding right TMJ. She denies any nipple discharge or blood from the nipples. ROS: Musculoskeletal issues including TMJ problems and right neck problems. Review of systems is otherwise unremarkable PE: Blood pressure: 128/78, Height: 5 feet 3 inches, Weight: 168 pounds, Temperature: 98.2, Pulse: 93. Pulse oximeter 97%. This is a well developed, well nourished, white female who is alert and orientedx3, in no acute distress. The breasts are without unusual puckering or dimpling. There are scars on both breast consistent with her previous breast reduction surgery. There are slight valleys in the breast near the scars consistent with her breast reduction surgery. At the 8:00 to 9 o'clock position of the right breast there is a fullness without a discrete mass. This is seems to be an area where less breast tissue was removed compared to the surrounding areas. This is also slightly tender in this area and she states this is where she tends to have the most discomfort. Axillary exam is negative for adenopathy. Impression: 1. 63-year-old menopausal female status post bilateral breast reduction surgery, with recent focal right breast pain greatest at the 8:00 to 9 o'clock position of the breast. 2. Slight fullness at the 8:00 to 9 o'clock position of the right breast without discrete mass. This is probably an area where less tissue was removed during her breast reduction. Plan: 1. Right breast ultrasound was recommended to further evaluate the area of greatest soreness and the area of slight fullness on breast exam. If there are suspicious findings, tissue sampling would probably be warranted. If cystic or tissue that is not cystic or solid, probable conservative management. 2. We have discussed trying to decrease caffeine intake, which may make breasts more sensitive. We can also try to continue weaning from the low-dose ERT. We have discussed ways of weaning. 3. She will continue to see her other doctors regarding the TMJ and right neck problems. 4. She will return in around 6 months for her annual well woman examination and mammogram. Time spent with the patient: 15 minutes
== END ==
LOC: WWCWWP 11:09
PROVIDERS: ATTEND Obstetrics & Gynecology
DX: N64.4 Mastodynia (principal); N63.10 Unspecified lump in the right breast, unspecified quadrant; Z98.890 Other specified postprocedural states; Z91.048 Other nonmedicinal substance allergy status; Z88.2 Allergy status to sulfonamides; Z88.8 Allergy status to other drugs, medicaments and biological substances

== ENCOUNTER → 2024-05-18 | Outpatient (CLI) | payer BC ==
--- NOTE | 2024-05-18 09:28 | USB ---
Patient History: Menarche at age 12. First Full-Term at age 22. Left ovary removed at age 50. Right ovary removed at age 50. Hysterectomy at age 45. Postmenopausal. Patient has history of breast feeding. Other cancer, age 44. Hormonal Contraceptives for 3 years from age 35 until age 38. Paternal aunt had breast cancer, age 54. Risk Values: Dianna 5 year model risk: 1.0%. NCI Lifetime model risk: 7.7%. Technique: Method: Targeted. Prior Study Comparison: 07/07/2021 Bilateral Screening Mammogram, [facility]. 09/02/2022 Bilateral MG 3D screening mammo w/cad, [facility]. 09/20/2023 Bilateral MG 3D screening mammo w/cad, [facility]. Findings: The lateral section of the breast of the right breast, the axilla of the right breast and the retroareolar of the right breast were scanned. Targeted ultrasound right breast 6:00 to 10:00 position including scanning of the subareolar region and axilla. No discrete abnormality at the 8:00 position palpated thickening. At the 9:00 position, 6 cm from the nipple, there is some ectatic ducts demonstrated, given slightly more peripheral location than typically seen, reassess that short interval follow-up. No other solid or cystic lesion or axillary lymphadenopathy. Overall Assessment: Probably benign, BI-RAD 3 Management: Diagnostic Mammogram of both breasts in 4 months. Diagnostic Breast Ultrasound of the right breast. Bilateral mammograms in time for the patient's annual exam. A clinical breast exam by your physician is recommended on an annual basis and results should be correlated with mammographic findings. This exam should not preclude additional follow-up of suspicious palpable abnormalities. Results were given to the patient verbally at the time of exam. [facility], , 05/18/2024 9:25 AM. Electronically signed and approved by: Michael Gay M.D. Radiologist
== END | disposition home or self-care (01) ==
LOC: RADUSWWP 08:31
PROVIDERS: ATTEND Obstetrics & Gynecology
DX: N64.4 Mastodynia (principal); Z78.0 Asymptomatic menopausal state; Z80.3 Family history of malignant neoplasm of breast